=== PATIENT | female | born 1970 | race Caucasian/White ===

== ENCOUNTER 2019-07-08 08:10 | Day surgery (SDC) | payer BC ==
[2019-06-26 09:29] VITALS: BMI 38.2
[2019-07-08] MEDS ORDERED: LIDOCAINE HCL 2% (20ML MULTI-DOSE VIAL) NR ONE (10:11)
[2019-07-08] MEDS ORDERED: MIDAZOLAM HCL 2 MG/2 ML SINGLE DOSE VIAL ONE (10:21)
[2019-07-08] MEDS ORDERED: PROPOFOL 20 ML ONE (10:40)
[2019-07-08 12:03] VITALS: TEMP 97.8
[2019-07-08 12:08] VITALS: BP 130/60; PULSE 72
--- NOTE | 2019-07-09 09:57 | OP ---
DATE OF OPERATION: 07/08/2019 PREOPERATIVE DIAGNOSIS: Left carpal tunnel syndrome. POSTOPERATIVE DIAGNOSIS: Left carpal tunnel syndrome. OPERATIVE PROCEDURE: Left carpal tunnel release. ANESTHESIA: Local with sedation. COMPLICATIONS: None. ESTIMATED BLOOD LOSS: Minimal. INDICATION FOR PROCEDURE: The patient is a 48-year-old female with the above finding, indicated for operative treatment. Risks, benefits, and alternatives were discussed with patient at length. Proper informed consent was obtained. PROCEDURE: After proper identification of the patient and the correct operative site, patient was brought to the operating room and placed supine on the operative table. Prominences were well padded. Sedation was given by the anesthesiologist. Local anesthesia was given. Left upper extremity was prepped and draped in the usual sterile fashion. A well-padded tourniquet was placed as well as a sterile prep. Esmarch bandage was used to exsanguinate the left upper extremity. Tourniquet was inflated to 250 mmHg. A longitudinal incision was made in the proximal aspect of the palm. Incision was taken sharply through the skin, with blunt and sharp dissection through the subcutaneous tissues. Palmar fascia was divided longitudinally. Transcarpal ligament along with its distal 4 cm of the antebrachial fascia were divided longitudinally under direct visualization with loupe magnification. This provided complete release of the median nerve at the wrist. Wound was irrigated and repaired with 5-0 fast-absorbing plain-gut suture. Sterile dressings were applied. Patient was brought to recovery room in stable condition. She tolerated the procedure well. Gabe [id number]
== END 2019-07-08 12:09 | disposition home or self-care (01) ==
LOC: FASU 08:10
PROVIDERS: ATTEND Orthopaedic Surgery Hand Surgery
PROC: 01N50ZZ Release Median Nerve, Open Approach (ICD-10-PCS; principal; 2019-07-08 10:46)
DX: G56.02 Carpal tunnel syndrome, left upper limb (principal)
CPT/HCPCS: 84703